=== PATIENT | male | born 1995 ===

== ENCOUNTER 2018-04-16 06:36 | Emergency (ER) | payer OTHER ==
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
== END 2018-04-16 07:50 | disposition home or self-care (01) ==
LOC: MW.ED 06:36
DX: S74.02XA Injury of sciatic nerve at hip and thigh level, left leg, initial encounter (principal); S30.0XXA Contusion of lower back and pelvis, initial encounter; S00.83XA Contusion of other part of head, initial encounter; W22.8XXA Striking against or struck by other objects, initial encounter
CPT/HCPCS: 72170; 72170-26; 99283